=== PATIENT | male | born 1940 | race Caucasian/White ===

== ENCOUNTER → 2017-05-22 | Outpatient (CLI) | payer OTHER ==
[~2017-05-22] MED LIST: ADAL40PE IJ; FOLI0.8C PO; LORA10TA37 PO; METH2.5T PO
== END | disposition home or self-care (01) ==
LOC: CFH 07:07
PROVIDERS: ATTEND Family Medicine
DX: R22.2 Localized swelling, mass and lump, trunk (principal)
CPT/HCPCS: 71020; 71120

== ENCOUNTER 2017-12-02 02:51 | Emergency (ER) | payer OTHER ==
[~2017-12-02] VITALS: Ht 172.7 cm; Wt 79.3 kg
[2017-12-02 02:52] VITALS: BP 159/81
== END 2017-12-02 04:31 | disposition home or self-care (01) ==
LOC: ED 03:23
DX: T63.301A Toxic effect of unspecified spider venom, accidental (unintentional), initial encounter (principal); R51 Headache; Y92.89 Other specified places as the place of occurrence of the external cause
CPT/HCPCS: 99284

== ENCOUNTER → 2017-12-30 | Outpatient (CLI) | payer OTHER | LOC: CFH 08:39 | PROVIDERS: ATTEND Specialist | DX: M06.09 Rheumatoid arthritis without rheumatoid factor, multiple sites (principal); Z92.25 Personal history of immunosuppression therapy | CPT/HCPCS: 36415; 86480 ==

== ENCOUNTER → 2019-01-08 | Outpatient (CLI) | payer OTHER | END | disposition home or self-care (01) | LOC: LAB 14:01 | PROVIDERS: ATTEND Family Medicine | DX: Z79.899 Other long term (current) drug therapy (principal) | CPT/HCPCS: 36415; 86480; 86803; 87340 ==

== ENCOUNTER → 2019-01-25 | Outpatient (CLI) | payer OTHER ==
[2019-01-25 13:23] LABS: CHLORIDE 109 mmol/L (98-107)
[2019-01-25 13:31] LABS: ALANINE AMINOTRANSFERASE 27 U/L (12-78); ALBUMIN 4.1 g/dL (3.4-5.0); ALKALINE PHOSPHATASE 61 U/L (45-117); ANION GAP 4 mmol/L (5-15); BILIRUBIN,TOTAL 0.8 mg/dL (0.2-1.0); CHOL/HDL RATIO 1.7; CHOLESTEROL, TOTAL 123 mg/dL (140-239); CREATININE 1.02 mg/dL (0.7-1.3); HDL CHOL % 58 % (26-37); HDL CHOLESTEROL (DIRECT) 71 mg/dL (40-60); LDL CHOLESTEROL,CALCULATED 37 mg/dL (54-169); LDL/HDL RATIO 0.5 (0.5-3.0); TRIGLYCERIDES 75 mg/dL (50-200); VLDL CHOLESTEROL 15 mg/dL (0-25)
== END | disposition home or self-care (01) ==
LOC: CFH 07:09
PROVIDERS: ATTEND Internal Medicine Cardiovascular Disease
DX: I25.10 Atherosclerotic heart disease of native coronary artery without angina pectoris (principal); E78.2 Mixed hyperlipidemia; R07.9 Chest pain, unspecified
CPT/HCPCS: 36415; 80053; 80061

== ENCOUNTER → 2019-02-01 | Outpatient (CLI) | payer OTHER | END | disposition home or self-care (01) | LOC: CVU 09:49 | PROVIDERS: ATTEND Internal Medicine Cardiovascular Disease | DX: I65.23 Occlusion and stenosis of bilateral carotid arteries (principal); E78.5 Hyperlipidemia, unspecified; I25.10 Atherosclerotic heart disease of native coronary artery without angina pectoris | CPT/HCPCS: 93306; 93880 ==

== ENCOUNTER 2021-04-02 06:00 | Day surgery (SDC) | payer OTHER ==
[~2021-04-02] VITALS: Ht 172.7 cm; Wt 69.9 kg
[2021-04-02] MEDS ORDERED: CALC-455 PO (07:22)
[2021-04-02] MEDS ORDERED: OMEP-110 PO (07:22)
[2021-04-02] MEDS ORDERED: LACTATED RINGERS 1,000 ML IV SCH (07:30)
[2021-04-02] MEDS ORDERED: CHLORHEXIDINE 15 ML UDC PO ONE (07:30)
[2021-04-02 07:47] VITALS: BP 147/78
[2021-04-02] MEDS ORDERED: ALBUTEROL SULFATE 2.5 MG/3 ML NPPB PRN (08:00)
[2021-04-02] MEDS ORDERED: OXYcodone 5 MG/5 ML ORAL.SOL UDC PO PRN (08:00)
[2021-04-02] MEDS ORDERED: FENTANYL PF 100 MCG/2ML IV PRN (08:00)
[2021-04-02] MEDS ORDERED: PROMETHAZINE 25 MG/ML, 1ML IVPush PRN (08:00)
[2021-04-02] MEDS ORDERED: ACETAMINOPHEN 325 MG TABLET PO PRN (08:00)
[2021-04-02] MEDS ORDERED: MEPERIDINE/PF 25MG/0.5ML IVPush PRN (08:00)
[2021-04-02] MEDS ORDERED: HYDROmorphone 1 MG/ML, 1ML INJ IVPush PRN (08:00)
[2021-04-02] MEDS ORDERED: MIDAZOLAM 1 MG/ML, 2ML IV PRN (08:00)
[2021-04-02] MEDS ORDERED: LABETALOL 5MG/ML, 20ML IV PRN (08:00)
[2021-04-02] MEDS ORDERED: FENTANYL PF 250 MCG/5ML ONE (08:06)
[2021-04-02] MEDS ORDERED: BUPIVACAINE/PF 0.5% ONE (08:10)
[2021-04-02] MEDS ORDERED: EPINEPHRINE 1 MG/ML, 1ML ONE (08:10)
[2021-04-02] MEDS ORDERED: PHENYLEPHRINE 10 MG/ML ONE (08:27)
[2021-04-02] MEDS ORDERED: DEXAMETHASONE 4 MG/ML, 1ML ONE (08:27)
[2021-04-02] MEDS ORDERED: LIDOCAINE-MPF 2% ,5ML ONE (08:59)
[2021-04-02] MEDS ORDERED: PROPOFOL 10 MG/ML, 20ML ONE (09:05)
[2021-04-02] MEDS ORDERED: ROCURONIUM 10MG/ML,5ML ONE (09:05)
[2021-04-02] MEDS ORDERED: CEFAZOLIN 1,000 MG ONE (09:05)
[2021-04-02] MEDS ORDERED: ONDANSETRON 2MG/ML, 2ML ONE (09:05)
[2021-04-02] MEDS ORDERED: NEOSTIGMINE 1 MG/ML, 10ML ONE (09:05)
[2021-04-02] MEDS ORDERED: GLYCOPYRROLATE 0.2MG/1ML, 5ML ONE (09:05)
[2021-04-02] MEDS ORDERED: ACETAMINOPHEN 650 MG/20.3 ML UDC ONE (10:57)
[2021-04-02] MEDS ORDERED: OXYcodone 5 MG/5 ML ORAL.SOL UDC ONE (10:58)
== END 2021-04-02 12:50 | disposition home or self-care (01) ==
LOC: OUT 06:00
PROVIDERS: ATTEND Orthopaedic Surgery
DX: S42.022A Displaced fracture of shaft of left clavicle, initial encounter for closed fracture (principal); I25.10 Atherosclerotic heart disease of native coronary artery without angina pectoris; Z20.822 Contact with and (suspected) exposure to COVID-19; Z79.899 Other long term (current) drug therapy; Z87.891 Personal history of nicotine dependence; X58.XXXA Exposure to other specified factors, initial encounter; Y93.89 Activity, other specified; Y92.89 Other specified places as the place of occurrence of the external cause; Y99.8 Other external cause status
CPT/HCPCS: 23515; 73000; 87635; 93005; C1713; J0171; J0690; J1100; J2370; J2405; J2704; J2710; J3010; J7120; 76000

== ENCOUNTER 2021-04-17 16:36 | Inpatient (IN) | payer OTHER ==
[~2021-04-17] VITALS: Ht 170.2 cm; Wt 69.7 kg
[~2021-04-17 16:36] MED LIST changes: +CALC-455 PO; +OMEP-110 PO
--- NOTE | 2021-04-17 17:08 | NUR ---
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
--- NOTE | 2021-04-17 17:30 | NUR ---
pt presents to ed with c/o right sided weakness and dysarthria x48 hours. per pt and pt family, pt had a fall 4 weeks ago where he broke his clavicle, some ribs, and hit head. pt strength equal throuhgout bilaterally, dysarthria noted. pt a&o x4, resps even and unlabored, vss, nadn. warm blanket provided, call light in reach.
--- NOTE | 2021-04-17 17:30 | NUR ---
pt back from ct
[2021-04-17 17:43] LABS: BASOPHILS % (AUTO) 1 % (0-1); EOSINOPHILS % (AUTO) 0 % (1-7); LYMPHOCYTES % (AUTO) 22 % (22-44); MEAN CORPUSCULAR HEMOGLOBIN 34.6 pg (27.5-34.5); MEAN CORPUSCULAR HGB CONC 35.4 g/dL (33.2-36.2); MEAN PLATELET VOLUME 9.7 fL (7.4-10.4); MONOCYTES % (AUTO) 15 % (2-9); NEUTROPHILS % (AUTO) 62 % (42-75); PLATELET COUNT 192 x10^3/uL (130-400); RED BLOOD COUNT 3.54 x10^6/uL (4.38-5.82); RED CELL DISTRIBUTION WIDTH 12.1 % (9.4-14.8)
[2021-04-17 17:52] LABS: ALANINE AMINOTRANSFERASE 48 U/L (12-78); ALBUMIN 3.2 g/dL (3.4-5.0); ANION GAP 7 mmol/L (5-15); CALCIUM 8.5 mg/dL (8.5-10.1); CHLORIDE 99 mmol/L (98-107); CREATININE 0.96 mg/dL (0.7-1.3)
[2021-04-17 17:55] LABS: ALKALINE PHOSPHATASE 114 U/L (45-117); TOTAL PROTEIN 7.4 g/dL (6.4-8.2)
--- NOTE | 2021-04-17 17:58 | NUR ---
richelle Santiago at bedside for initial assessment
--- NOTE | 2021-04-17 18:38 | NUR ---
Jabier galaviz in [facility] - 04/17/21 at 1847 by SINGH pt taken to ct
--- NOTE | 2021-04-17 18:43 | NUR ---
PT TO MRI
--- NOTE | 2021-04-17 18:47 | NUR ---
REPORT GIVEN TO RASHAD JOYA
[2021-04-17] MEDS ORDERED: SODIUM CHLORIDE 0.9% 1,000 ML IV ONE (19:00)
[2021-04-17] MEDS ORDERED: LEVETIRACETAM 500 MG in SODIUM CHLORIDE 0.9% 100 ML IV SCH (19:00)
[2021-04-17 19:19] LABS: INTERNATIONAL NORMALIZED RATIO 1.07 (0.93-1.1); PROTHROMBIN TIME 11.4 Seconds (9.6-11.5)
--- NOTE | 2021-04-17 19:21 | NUR ---
First contact, pt at 60* per order, NSR no ectopy, VSS. IV started to right ac, meds started per order. Seizure pads applied, bed low.
--- NOTE | 2021-04-17 19:43 | NUR ---
Report to TOAN Barnes tx to tele on monitor with belongings.
[2021-04-17 20:05] VITALS: BP 145/74
[2021-04-17 22:42] VITALS: BP 137/70
[2021-04-17] MEDS ORDERED: MELATONIN 5 MG TABLET PO PRN (23:00)
[2021-04-17] MEDS ORDERED: DOCUSATE 100 MG CAPSULE PO PRN (23:00)
[2021-04-18] VITALS (8 sets, daily range): BP systolic 136–163; BP diastolic 63–90
[2021-04-18 05:55] LABS: BASOPHILS % (AUTO) 0 % (0-1); EOSINOPHILS % (AUTO) 1 % (1-7); LYMPHOCYTES % (AUTO) 20 % (22-44); MEAN CORPUSCULAR HEMOGLOBIN 36.2 pg (27.5-34.5); MEAN CORPUSCULAR HGB CONC 36.1 g/dL (33.2-36.2); MEAN PLATELET VOLUME 9.7 fL (7.4-10.4); MONOCYTES % (AUTO) 15 % (2-9); NEUTROPHILS % (AUTO) 64 % (42-75); PLATELET COUNT 171 x10^3/uL (130-400); RED BLOOD COUNT 3.23 x10^6/uL (4.38-5.82)
[2021-04-18 06:03] LABS: ANION GAP 6 mmol/L (5-15); CALCIUM 8.3 mg/dL (8.5-10.1); CHLORIDE 103 mmol/L (98-107); CREATININE 0.73 mg/dL (0.7-1.3)
[2021-04-18] MEDS ORDERED: LEVETIRACETAM 500 MG in SODIUM CHLORIDE 0.9% 100 ML IV SCH (07:00)
[2021-04-18] MEDS ORDERED: LACTATED RINGERS 1,000 ML IV ONE (11:00)
[2021-04-18] MEDS ORDERED: BUPIVACAINE/PF 0.5% ONE (13:11)
[2021-04-18] MEDS ORDERED: THROMBIN 20,000 UNIT VIAL TP ONE (13:11)
[2021-04-18] MEDS ORDERED: EPINEPHRINE 1 MG/ML, 1ML ONE (13:11)
[2021-04-18] MEDS ORDERED: CHLORHEXIDINE 15 ML UDC ONE (13:44)
[2021-04-18] MEDS ORDERED: CHLORHEXIDINE 15 ML UDC PO ONE (14:00)
[2021-04-18] MEDS ORDERED: FENTANYL PF 100 MCG/2ML ONE (14:15)
[2021-04-18] MEDS ORDERED: FENTANYL PF 250 MCG/5ML ONE (14:41)
[2021-04-18] MEDS ORDERED: DEXAMETHASONE 4 MG/ML, 1ML ONE (14:42)
[2021-04-18] MEDS ORDERED: LABETALOL 5MG/ML, 20ML ONE (14:42)
[2021-04-18] MEDS ORDERED: CEFAZOLIN 1,000 MG ONE (15:28)
[2021-04-18] MEDS ORDERED: NEOSTIGMINE 1 MG/ML, 10ML ONE (15:28)
[2021-04-18] MEDS ORDERED: SUCCINYLCHOLINE 20 MG/ML, 10ML ONE (15:28)
[2021-04-18] MEDS ORDERED: ONDANSETRON 2MG/ML, 2ML ONE (15:28)
[2021-04-18] MEDS ORDERED: GLYCOPYRROLATE 0.2MG/1ML, 5ML ONE (15:28)
[2021-04-18] MEDS ORDERED: PROPOFOL 10 MG/ML, 20ML ONE (15:28)
[2021-04-18] MEDS ORDERED: ROCURONIUM 10MG/ML,5ML ONE (15:28)
[2021-04-18] MEDS ORDERED: LEVETIRACETAM 1,000 MG in SODIUM CHLORIDE 0.9% 100 ML IV ONE (16:30)
[2021-04-18] MEDS ORDERED: BACITRACIN OINT 500U/GM, 15 GM ONE (16:31)
[2021-04-18] MEDS ORDERED: OXYcodone 5 MG/5 ML ORAL.SOL UDC PO PRN (17:00)
[2021-04-18] MEDS ORDERED: hydrALAzine 20 MG/ML, 1ML IV PRN (17:00)
[2021-04-18] MEDS ORDERED: MEPERIDINE/PF 25MG/0.5ML IVPush PRN (17:00)
[2021-04-18] MEDS ORDERED: LABETALOL 5MG/ML, 20ML IV PRN (17:00)
[2021-04-18] MEDS ORDERED: ONDANSETRON 2MG/ML, 2ML IVPush PRN (17:00)
[2021-04-18] MEDS ORDERED: HYDROcodone/APAP 7.5-325MG/15ML UDC PO PRN (17:00)
[2021-04-18] MEDS ORDERED: FENTANYL PF 100 MCG/2ML IV PRN (17:00)
[2021-04-18] MEDS ORDERED: HYDROmorphone 1 MG/ML, 1ML INJ IVPush PRN (17:00)
[2021-04-18] MEDS ORDERED: hydrALAzine 20 MG/ML, 1ML ONE (17:01)
[2021-04-18] MEDS: [UNRECOGNIZED DRUG - REMARK] MC SCH (19:00)
[2021-04-18] MEDS ORDERED: MAGNESIUM HYDROXIDE 8%, 30ML UDC PO PRN (19:00)
[2021-04-18] MEDS ORDERED: NITROPRUSSIDE 50 MG in DEXTROSE 5% 248 ML IV PRN (19:00)
[2021-04-18] MEDS ORDERED: BISACODYL 10 MG SUPP PR PRN (19:00)
[2021-04-18] MEDS ORDERED: HYDROcodone/APAP 5/325 TABLET PO PRN (19:00)
[2021-04-18] MEDS: NS + 20MEQ KCL 1,000 ML IV SCH (20:02)
[2021-04-18 20:03] LABS: BASOPHILS % (AUTO) 0 % (0-1); EOSINOPHILS % (AUTO) 0 % (1-7); LYMPHOCYTES % (AUTO) 3 % (22-44); MEAN CORPUSCULAR HEMOGLOBIN 34.9 pg (27.5-34.5); MEAN CORPUSCULAR HGB CONC 35.9 g/dL (33.2-36.2); MEAN PLATELET VOLUME 9.6 fL (7.4-10.4); MONOCYTES % (AUTO) 4 % (2-9); NEUTROPHILS % (AUTO) 93 % (42-75); PLATELET COUNT 174 x10^3/uL (130-400); RED BLOOD COUNT 3.38 x10^6/uL (4.38-5.82); RED CELL DISTRIBUTION WIDTH 12.1 % (9.4-14.8)
[2021-04-18 20:14] LABS: ANION GAP 9 mmol/L (5-15); CALCIUM 7.9 mg/dL (8.5-10.1); CHLORIDE 103 mmol/L (98-107); CREATININE 0.62 mg/dL (0.7-1.3)
[2021-04-18] MEDS: LABETALOL 5MG/ML, 20ML IV SCH (21:05)
[2021-04-19] MEDS: CEFAZOLIN PMX 1GM/50ML 50 ML IVPB SCH ×3 (01:44→18:08)
[2021-04-19] MEDS: [UNRECOGNIZED DRUG - REMARK] MC SCH (03:00)
[2021-04-19] MEDS: LABETALOL 5MG/ML, 20ML IV SCH ×3 (03:00→19:35)
[2021-04-19 03:22] LABS: BASOPHILS % (AUTO) 0 % (0-1); EOSINOPHILS % (AUTO) 0 % (1-7); LYMPHOCYTES % (AUTO) 6 % (22-44); MEAN CORPUSCULAR HEMOGLOBIN 35.1 pg (27.5-34.5); MEAN CORPUSCULAR HGB CONC 36.2 g/dL (33.2-36.2); MEAN PLATELET VOLUME 9.4 fL (7.4-10.4); MONOCYTES % (AUTO) 9 % (2-9); NEUTROPHILS % (AUTO) 85 % (42-75); PLATELET COUNT 192 x10^3/uL (130-400); RED BLOOD COUNT 3.19 x10^6/uL (4.38-5.82); RED CELL DISTRIBUTION WIDTH 12.2 % (9.4-14.8)
[2021-04-19 03:32] LABS: ANION GAP 8 mmol/L (5-15); CALCIUM 7.9 mg/dL (8.5-10.1); CHLORIDE 103 mmol/L (98-107); CREATININE 0.68 mg/dL (0.7-1.3)
[2021-04-19] MEDS: LEVETIRACETAM 500 MG in SODIUM CHLORIDE 0.9% 100 ML IV SCH ×2 (05:31→18:08)
[2021-04-19] MEDS: NS + 20MEQ KCL 1,000 ML IV SCH ×2 (07:14→08:30)
[2021-04-19] MEDS: OMEPRAZOLE 20 MG CAPSULE.DR PO SCH (08:00)
[2021-04-19] MEDS: CALCIUM/VITAMIN D3 250-125 TABLET PO SCH (09:00)
[2021-04-19] MEDS: SENNA/DOCUSATE TABLET PO SCH (09:00)
[2021-04-19] MEDS: LORATADINE 10 MG TABLET PO SCH (09:00)
[2021-04-19] MEDS: FOLIC ACID 1 MG TABLET PO SCH (09:00)
[2021-04-19] MEDS: morphine SULFATE 10 MG/ML, 1ML IV PRN ×2 (11:24→21:26)
[2021-04-20] MEDS: CEFAZOLIN PMX 1GM/50ML 50 ML IVPB SCH ×2 (00:13→07:27)
[2021-04-20] MEDS: morphine SULFATE 10 MG/ML, 1ML IV PRN (01:17)
[2021-04-20] MEDS: NS + 20MEQ KCL 1,000 ML IV SCH (01:56)
[2021-04-20] MEDS: ACETAMINOPHEN 650 MG SUPP PR PRN ×2 (02:28→15:56)
[2021-04-20] MEDS: LABETALOL 5MG/ML, 20ML IV SCH ×3 (04:00→20:26)
[2021-04-20] MEDS: LEVETIRACETAM 500 MG in SODIUM CHLORIDE 0.9% 100 ML IV SCH ×2 (05:13→17:13)
[2021-04-20] MEDS: OMEPRAZOLE 20 MG CAPSULE.DR PO SCH (05:13)
[2021-04-20] MEDS ORDERED: MORPHINE SULFATE 4 MG/ML, 1ML IV PRN (08:30)
[2021-04-20] MEDS: CALCIUM/VITAMIN D3 250-125 TABLET PO SCH (09:00)
[2021-04-20] MEDS: FOLIC ACID 1 MG TABLET PO SCH (09:00)
[2021-04-20] MEDS: SENNA/DOCUSATE TABLET PO SCH (09:00)
[2021-04-20] MEDS: LORATADINE 10 MG TABLET PO SCH (09:00)
[2021-04-20 09:04] LABS: BASOPHILS % (AUTO) 0 % (0-1); EOSINOPHILS % (AUTO) 0 % (1-7); LYMPHOCYTES % (AUTO) 10 % (22-44); MEAN CORPUSCULAR HEMOGLOBIN 34.1 pg (27.5-34.5); MEAN CORPUSCULAR HGB CONC 35.1 g/dL (33.2-36.2); MEAN PLATELET VOLUME 9.3 fL (7.4-10.4); MONOCYTES % (AUTO) 12 % (2-9); NEUTROPHILS % (AUTO) 77 % (42-75); PLATELET COUNT 217 x10^3/uL (130-400); RED BLOOD COUNT 3.41 x10^6/uL (4.38-5.82)
[2021-04-20] MEDS: MORPHINE SULFATE 4 MG/ML, 1ML IV PRN ×2 (12:48→23:48)
[2021-04-20] MEDS: ACETAMINOPHEN 325 MG TABLET PO PRN (12:48)
[2021-04-20] MEDS ORDERED: PHARMACOKINETIC CONSULTATION MC ONE (14:00)
[2021-04-20] MEDS ORDERED: PHARMACOKINETIC MONITORING MC PRN (14:00)
[2021-04-20] MEDS ORDERED: VANCOMYCIN 1,700 MG in SODIUM CHLORIDE 0.9% 250 ML IV ONE (14:00)
[2021-04-20] MEDS ORDERED: VANCOMYCIN PER PHARMACY MC PRN (14:00)
[2021-04-20 14:21] LABS: MICROSCOPIC AUTO
[2021-04-20] MEDS: CEFTRIAXONE 2 GM in DEXTROSE 5% 50 ML IVPB SCH (14:30)
[2021-04-20] MEDS ORDERED: DOPAMINE/D5W PMX 250 ML ONE (18:33)
[2021-04-21] MEDS: CEFTRIAXONE 2 GM in DEXTROSE 5% 50 ML IVPB SCH ×2 (01:40→14:20)
[2021-04-21] MEDS: NS + 20MEQ KCL 1,000 ML IV SCH (01:40)
[2021-04-21] MEDS: MORPHINE SULFATE 4 MG/ML, 1ML IV PRN ×3 (04:12→11:08)
[2021-04-21] MEDS: LEVETIRACETAM 500 MG in SODIUM CHLORIDE 0.9% 100 ML IV SCH ×2 (04:13→17:56)
[2021-04-21 04:25] LABS: BASOPHILS % (AUTO) 0 % (0-1); EOSINOPHILS % (AUTO) 0 % (1-7); LYMPHOCYTES % (AUTO) 13 % (22-44); MEAN CORPUSCULAR HEMOGLOBIN 34.9 pg (27.5-34.5); MEAN PLATELET VOLUME 9.5 fL (7.4-10.4); MONOCYTES % (AUTO) 13 % (2-9); NEUTROPHILS % (AUTO) 74 % (42-75); PLATELET COUNT 199 x10^3/uL (130-400); RED BLOOD COUNT 3.14 x10^6/uL (4.38-5.82); RED CELL DISTRIBUTION WIDTH 11.8 % (9.4-14.8)
[2021-04-21 04:32] LABS: ALBUMIN 2.4 g/dL (3.4-5.0); ANION GAP 7 mmol/L (5-15); CALCIUM 8.1 mg/dL (8.5-10.1); CHLORIDE 99 mmol/L (98-107)
[2021-04-21 04:35] LABS: ALANINE AMINOTRANSFERASE 26 U/L (12-78); ALKALINE PHOSPHATASE 80 U/L (45-117); BILIRUBIN,TOTAL 0.6 mg/dL (0.2-1.0); CREATININE 0.65 mg/dL (0.7-1.3); TOTAL PROTEIN 6.3 g/dL (6.4-8.2)
[2021-04-21] MEDS: LABETALOL 5MG/ML, 20ML IV SCH (04:47)
[2021-04-21] MEDS: OMEPRAZOLE 20 MG CAPSULE.DR PO SCH (05:08)
[2021-04-21] MEDS ORDERED: SODIUM CHLORIDE 0.9%, 500ML IVBOLUS ONE (07:00)
[2021-04-21] MEDS: SODIUM CHLORIDE 0.9% 1,000 ML IV SCH ×2 (07:00→20:03)
[2021-04-21] MEDS ORDERED: SODIUM CHLORIDE 0.9% 1,000 ML IV SCH (07:00)
[2021-04-21] MEDS: ACETAMINOPHEN 650 MG SUPP PR PRN (07:49)
[2021-04-21] MEDS: CALCIUM/VITAMIN D3 250-125 TABLET PO SCH (09:00)
[2021-04-21] MEDS: FOLIC ACID 1 MG TABLET PO SCH (09:00)
--- NOTE | 2021-04-21 10:54 | NUR ---
TF recs: Promote at goal 65 ml/hr (ON propofol) 75 ml/hr (OFF propofol) Addendum: 04/21/21 at [address] Amended: Links added.
[2021-04-21] MEDS: SODIUM CHLORIDE 1 GM TABLET PO SCH ×3 (14:21→20:03)
[2021-04-21] MEDS: OXYcodone/APAP 5/325MG TABLET PO PRN ×2 (14:22→22:22)
[2021-04-21] MEDS: SENNA/DOCUSATE TABLET PO SCH (14:22)
[2021-04-21] MEDS ORDERED: VANCOMYCIN 1,400 MG in SODIUM CHLORIDE 0.9% 250 ML IV SCH (15:00)
[2021-04-22] MEDS: CEFTRIAXONE 2 GM in DEXTROSE 5% 50 ML IVPB SCH ×2 (01:25→17:46)
[2021-04-22] MEDS: OXYcodone/APAP 5/325MG TABLET PO PRN (02:43)
[2021-04-22] MEDS: OMEPRAZOLE 20 MG CAPSULE.DR PO SCH (04:11)
[2021-04-22] MEDS: LEVETIRACETAM 500 MG in SODIUM CHLORIDE 0.9% 100 ML IV SCH (05:17)
[2021-04-22] MEDS: SODIUM CHLORIDE 0.9% 1,000 ML IV SCH (05:27)
[2021-04-22 07:54] LABS: BASOPHILS % (AUTO) 0 % (0-1); EOSINOPHILS % (AUTO) 1 % (1-7); LYMPHOCYTES % (AUTO) 17 % (22-44); MEAN CORPUSCULAR HEMOGLOBIN 35.1 pg (27.5-34.5); MEAN CORPUSCULAR HGB CONC 35.7 g/dL (33.2-36.2); MEAN PLATELET VOLUME 8.9 fL (7.4-10.4); MONOCYTES % (AUTO) 12 % (2-9); NEUTROPHILS % (AUTO) 69 % (42-75); PLATELET COUNT 209 x10^3/uL (130-400); RED BLOOD COUNT 2.98 x10^6/uL (4.38-5.82); RED CELL DISTRIBUTION WIDTH 12.2 % (9.4-14.8)
[2021-04-22 08:02] LABS: ANION GAP 10 mmol/L (5-15); CALCIUM 7.9 mg/dL (8.5-10.1); CHLORIDE 101 mmol/L (98-107); CREATININE 0.54 mg/dL (0.7-1.3)
[2021-04-22] MEDS: LEVETIRACETAM 500 MG TABLET PO SCH ×2 (09:14→22:02)
[2021-04-22] MEDS: CALCIUM/VITAMIN D3 250-125 TABLET PO SCH (09:15)
[2021-04-22] MEDS: SENNA/DOCUSATE TABLET PO SCH (09:16)
[2021-04-22] MEDS: FOLIC ACID 1 MG TABLET PO SCH (09:16)
[2021-04-22] MEDS: SODIUM CHLORIDE 1 GM TABLET PO SCH ×3 (09:16→22:02)
[2021-04-22 14:40] VITALS: BP 171/74
[2021-04-22] MEDS: D5%-0.9% NACL 1,000 ML IV SCH (17:45)
[2021-04-22 20:43] VITALS: BP 175/77
[2021-04-23 01:01] VITALS: BP 142/79
[2021-04-23] MEDS: D5%-0.9% NACL 1,000 ML IV SCH (05:13)
[2021-04-23] MEDS: CEFTRIAXONE 2 GM in DEXTROSE 5% 50 ML IVPB SCH ×2 (05:13→17:57)
[2021-04-23] MEDS: OMEPRAZOLE 20 MG CAPSULE.DR PO SCH (05:20)
[2021-04-23 05:35] LABS: BASOPHILS % (AUTO) 0 % (0-1); EOSINOPHILS % (AUTO) 1 % (1-7); LYMPHOCYTES % (AUTO) 14 % (22-44); MEAN CORPUSCULAR HEMOGLOBIN 36.4 pg (27.5-34.5); MEAN CORPUSCULAR HGB CONC 36.6 g/dL (33.2-36.2); MONOCYTES % (AUTO) 13 % (2-9); NEUTROPHILS % (AUTO) 72 % (42-75); PLATELET COUNT 229 x10^3/uL (130-400); RED BLOOD COUNT 2.99 x10^6/uL (4.38-5.82); RED CELL DISTRIBUTION WIDTH 12.2 % (9.4-14.8)
[2021-04-23 05:36] LABS: ANION GAP 8 mmol/L (5-15); CHLORIDE 99 mmol/L (98-107); CREATININE 0.53 mg/dL (0.7-1.3)
[2021-04-23] MEDS ORDERED: POTASSIUM CHLORIDE 40 MEQ in SODIUM CHLORIDE 0.9% 500 ML IV ONE (06:30)
[2021-04-23 07:31] VITALS: BP 150/71
[2021-04-23] MEDS: CALCIUM/VITAMIN D3 250-125 TABLET PO SCH (09:00)
[2021-04-23] MEDS: LEVETIRACETAM 500 MG TABLET PO SCH ×3 (10:04→22:19)
[2021-04-23] MEDS: FOLIC ACID 1 MG TABLET PO SCH (10:05)
[2021-04-23] MEDS: SENNA/DOCUSATE TABLET PO SCH (10:05)
[2021-04-23] MEDS: SODIUM CHLORIDE 1 GM TABLET PO SCH ×4 (10:06→22:19)
[2021-04-23] MEDS ORDERED: POTASSIUM CHLORIDE 40 MEQ in D5%-0.9% NACL 1,000 ML IV SCH (16:00)
[2021-04-23] MEDS: POTASSIUM CHLORIDE 40 MEQ in D5%-0.9% NACL 1,000 ML IV SCH (16:34)
[2021-04-23 19:21] VITALS: BP 168/82
[2021-04-23] MEDS ORDERED: LEVETIRACETAM 500 MG in SODIUM CHLORIDE 0.9% 100 ML IV ONE (22:30)
[2021-04-23 23:37] LABS: ANION GAP 8 mmol/L (5-15); CHLORIDE 99 mmol/L (98-107); CREATININE 0.54 mg/dL (0.7-1.3)
[2021-04-24 01:01] VITALS: BP 169/83
[2021-04-24] MEDS: CEFTRIAXONE 2 GM in DEXTROSE 5% 50 ML IVPB SCH ×2 (05:50→17:33)
[2021-04-24 07:11] VITALS: BP 167/79
[2021-04-24 08:15] LABS: ANION GAP 7 mmol/L (5-15); CALCIUM 8.4 mg/dL (8.5-10.1); CHLORIDE 99 mmol/L (98-107)
[2021-04-24 08:16] LABS: CREATININE 0.53 mg/dL (0.7-1.3)
[2021-04-24] MEDS: CALCIUM/VITAMIN D3 250-125 TABLET PO SCH (09:06)
[2021-04-24] MEDS: SENNA/DOCUSATE TABLET PO SCH (09:06)
[2021-04-24] MEDS: LEVETIRACETAM 500 MG TABLET PO SCH ×2 (09:06→21:44)
[2021-04-24] MEDS: FOLIC ACID 1 MG TABLET PO SCH (09:06)
[2021-04-24] MEDS: OMEPRAZOLE 20 MG CAPSULE.DR PO SCH (09:06)
[2021-04-24] MEDS: SODIUM CHLORIDE 1 GM TABLET PO SCH ×3 (09:06→21:44)
[2021-04-24] MEDS: POTASSIUM CHLORIDE 40 MEQ in D5%-0.9% NACL 1,000 ML IV SCH (09:54)
[2021-04-24 12:04] VITALS: BP 157/80
[2021-04-24] MEDS: ACETAMINOPHEN 325 MG TABLET PO PRN (15:26)
[2021-04-24 18:53] VITALS: BP 113/68
[2021-04-25 00:33] VITALS: BP 142/87
[2021-04-25] MEDS: POTASSIUM CHLORIDE 40 MEQ in D5%-0.9% NACL 1,000 ML IV SCH (03:15)
[2021-04-25] MEDS: OMEPRAZOLE 20 MG CAPSULE.DR PO SCH (05:09)
[2021-04-25] MEDS: CEFTRIAXONE 2 GM in DEXTROSE 5% 50 ML IVPB SCH (05:09)
[2021-04-25 07:26] VITALS: BP 156/75
[2021-04-25] MEDS: SENNA/DOCUSATE TABLET PO SCH (09:31)
[2021-04-25] MEDS: LEVETIRACETAM 500 MG TABLET PO SCH ×2 (09:31→20:22)
[2021-04-25] MEDS: FOLIC ACID 1 MG TABLET PO SCH (09:31)
[2021-04-25] MEDS: CALCIUM/VITAMIN D3 250-125 TABLET PO SCH (09:31)
[2021-04-25] MEDS: SODIUM CHLORIDE 1 GM TABLET PO SCH ×3 (09:32→20:22)
[2021-04-25 12:12] VITALS: BP 124/69
[2021-04-25] MEDS: ACETAMINOPHEN 325 MG TABLET PO PRN ×2 (13:26→20:21)
[2021-04-25 18:44] VITALS: BP 156/79
[2021-04-26 00:41] VITALS: BP 146/84
[2021-04-26] MEDS: OMEPRAZOLE 20 MG CAPSULE.DR PO SCH (05:34)
[2021-04-26 07:10] VITALS: BP 166/90
[2021-04-26] MEDS: CALCIUM/VITAMIN D3 250-125 TABLET PO SCH (08:50)
[2021-04-26] MEDS: FOLIC ACID 1 MG TABLET PO SCH (08:50)
[2021-04-26] MEDS: SENNA/DOCUSATE TABLET PO SCH (08:51)
[2021-04-26] MEDS: SODIUM CHLORIDE 1 GM TABLET PO SCH ×3 (08:51→21:18)
[2021-04-26] MEDS: ACETAMINOPHEN 325 MG TABLET PO PRN ×2 (13:20→21:18)
[2021-04-26 17:37] VITALS: BP 142/83
[2021-04-26] MEDS: METOPROLOL TARTRATE 25 MG TAB PO SCH (17:39)
[2021-04-26 18:38] VITALS: BP 136/75
[2021-04-26] MEDS: ATORVASTATIN 40 MG TABLET PO SCH (21:18)
[2021-04-27 00:37] VITALS: BP 143/60
[2021-04-27 06:04] VITALS: BP 135/61
[2021-04-27] MEDS: OMEPRAZOLE 20 MG CAPSULE.DR PO SCH (06:08)
[2021-04-27] MEDS: METOPROLOL TARTRATE 25 MG TAB PO SCH (06:08)
[2021-04-27 06:16] LABS: BASOPHILS % (AUTO) 0 % (0-1); EOSINOPHILS % (AUTO) 2 % (1-7); LYMPHOCYTES % (AUTO) 27 % (22-44); MEAN CORPUSCULAR HEMOGLOBIN 35.2 pg (27.5-34.5); MEAN CORPUSCULAR HGB CONC 36.2 g/dL (33.2-36.2); MEAN PLATELET VOLUME 8.8 fL (7.4-10.4); MONOCYTES % (AUTO) 14 % (2-9); NEUTROPHILS % (AUTO) 57 % (42-75); PLATELET COUNT 352 x10^3/uL (130-400); RED BLOOD COUNT 3.34 x10^6/uL (4.38-5.82); RED CELL DISTRIBUTION WIDTH 12.2 % (9.4-14.8)
[2021-04-27 06:25] LABS: ANION GAP 6 mmol/L (5-15); CALCIUM 8.4 mg/dL (8.5-10.1); CHLORIDE 105 mmol/L (98-107); CREATININE 0.63 mg/dL (0.7-1.3)
[2021-04-27 06:59] VITALS: BP 146/77
[2021-04-27] MEDS ORDERED: CODE BLUE RESPONSE XX ONE (08:45)
[2021-04-27] MEDS ORDERED: SODIUM BICARB 8.4%, 50ML SYRINGE ONE (08:45)
[2021-04-27] MEDS: CALCIUM/VITAMIN D3 250-125 TABLET PO SCH (09:00)
[2021-04-27] MEDS: FOLIC ACID 1 MG TABLET PO SCH (09:00)
[2021-04-27] MEDS: SENNA/DOCUSATE TABLET PO SCH (09:00)
[2021-04-27] MEDS: SODIUM CHLORIDE 1 GM TABLET PO SCH ×3 (09:00→21:30)
[2021-04-27] MEDS ORDERED: PROPOFOL 100 ML IV ONE (09:07)
[2021-04-27] MEDS ORDERED: LORazepam 2 MG/ML, 1ML ONE (09:27)
[2021-04-27] MEDS ORDERED: LORazepam 2 MG/ML, 1ML IVPush ONE (09:30)
[2021-04-27] MEDS ORDERED: NOREPINEPHRINE 1 MG/ML, 4ML ONE (09:44)
[2021-04-27] MEDS ORDERED: SODIUM CHLORIDE 0.9% 1,000ML IVBOLUS ONE (11:00)
[2021-04-27] MEDS ORDERED: LIDOCAINE-MPF 1%, 2ML ENDO PRN (11:00)
[2021-04-27] MEDS ORDERED: PHARMACY MAY ADJ FOR RENAL FX MC SCH (11:00)
[2021-04-27 11:05] LABS: MEAN CORPUSCULAR HEMOGLOBIN 33.5 pg (27.5-34.5); MEAN CORPUSCULAR HGB CONC 34.2 g/dL (33.2-36.2); MEAN PLATELET VOLUME 8.8 fL (7.4-10.4); PLATELET COUNT 458 x10^3/uL (130-400); RED BLOOD COUNT 3.61 x10^6/uL (4.38-5.82); RED CELL DISTRIBUTION WIDTH 12.2 % (9.4-14.8)
[2021-04-27 11:13] LABS: ALBUMIN 2.6 g/dL (3.4-5.0); ANION GAP 15 mmol/L (5-15); CALCIUM 8.2 mg/dL (8.5-10.1); CHLORIDE 104 mmol/L (98-107)
[2021-04-27 11:17] LABS: ALANINE AMINOTRANSFERASE 122 U/L (12-78); ALKALINE PHOSPHATASE 104 U/L (45-117); BILIRUBIN,TOTAL 0.6 mg/dL (0.2-1.0); CREATININE 1.18 mg/dL (0.7-1.3); TOTAL PROTEIN 6.4 g/dL (6.4-8.2); TRIGLYCERIDES 120 mg/dL (50-200)
[2021-04-27 11:27] LABS: <PLATELET ESTIMATE> INCREASED; <PLT MORPHOLOGY> NORMAL PLT MORPH; <RBC MORPHOLOGY> NORMAL; BAND#(MANUAL) 0.83 x10^3/uL; BANDS%(MANUAL) 3 % (0-7); LYMPH#(MANUAL) 2.48 x10^3/uL (1-3.4); LYMPHS% (MANUAL) 9 % (22-44); MONOS#(MANUAL) 0.28 x10^3/uL (0.3-2.7); MONOS% (MANUAL) 1 % (2-9); SEG#(MANUAL) 23.93 x10^3/uL (1.8-6.8); SEGS% (MANUAL) 87 % (42-75)
[2021-04-27] MEDS ORDERED: MAGNESIUM SULFATE 1 GM in SODIUM CHLORIDE 0.9% 50 ML IV PRN (11:30)
[2021-04-27] MEDS ORDERED: CALCIUM CHLORIDE 13.6 MEQ in DEXTROSE 5% 100 ML IV PRN (11:30)
[2021-04-27] MEDS ORDERED: SODIUM PHOSPHATE 20 MMOL in SODIUM CHLORIDE 0.9% 250 ML IV PRN (11:30)
[2021-04-27] MEDS ORDERED: DEXMEDETOMIDINE 200 MCG in SODIUM CHLORIDE 0.9% 48 ML IV PRN (11:30)
[2021-04-27] MEDS ORDERED: NOREPINEPHRINE 8 MG in SODIUM CHLORIDE 0.9% 242 ML IV PRN (11:30)
[2021-04-27] MEDS ORDERED: PROPOFOL 100 ML IV PRN (11:30)
[2021-04-27] MEDS: KSCALE TO 4.0 IV SCH ×3 (11:30→21:00)
[2021-04-27] MEDS: AMPICILLIN/SULBACTAM 3 GM in SODIUM CHLORIDE 0.9% 100 ML IV SCH ×3 (11:57→21:30)
[2021-04-27] MEDS ORDERED: HEPARIN 5,000 UNITS/ML, 1ML SQ SCH (12:00)
[2021-04-27] MEDS: BUSPIRONE 10 MG TABLET NG SCH ×2 (12:15→20:09)
[2021-04-27] MEDS: FAMOTIDINE 20 MG/2 ML IV SCH ×2 (12:15→22:26)
[2021-04-27] MEDS: MIDAZOLAM HCL 50 MG in SODIUM CHLORIDE 0.9% 40 ML IV PRN (12:15)
[2021-04-27] MEDS ORDERED: POTASSIUM CHLORIDE PMX 100 ML IV ONE ×2 (13:30→22:00)
[2021-04-27] MEDS: FENTANYL PF 2,500 MCG in SODIUM CHLORIDE 0.9% 200 ML IV PRN (13:55)
[2021-04-27] MEDS ORDERED: DEXTROSE 50%, 50ML SYRINGE IV PRN (14:00)
[2021-04-27] MEDS ORDERED: INSULIN INFUSION FOR ICU PROTOCOL XX PRN (14:00)
[2021-04-27] MEDS ORDERED: INSULIN REGULAR 100 UNITS/ML, 3ML VIAL IV ONE (14:00)
[2021-04-27] MEDS: REGULAR INSULIN 100 UNITS in SODIUM CHLORIDE 0.9% 99 ML IV PRN ×2 (14:06→17:33)
[2021-04-27] MEDS: VECURONIUM 10 MG IVPush PRN ×2 (16:13→22:09)
[2021-04-27] MEDS: ARTIFICIAL TEARS OINT 3.5 GM EACHEYE SCH ×2 (17:00→20:08)
[2021-04-27] MEDS ORDERED: EPINEPHRINE SYRINGE 0.1 MG/ML, 10ML ONE (17:15)
[2021-04-27] MEDS ORDERED: POTASSIUM CHLORIDE 20 MEQ in SODIUM CHLORIDE 0.9% 250 ML IV ONE (18:00)
[2021-04-27] MEDS: PROPOFOL 100 ML IV PRN (20:29)
[2021-04-27] MEDS: ATORVASTATIN 40 MG TABLET PO SCH (21:30)
[2021-04-28] MEDS: MIDAZOLAM HCL 50 MG in SODIUM CHLORIDE 0.9% 40 ML IV PRN ×2 (00:41→15:34)
[2021-04-28] MEDS: KSCALE TO 4.0 IV SCH ×6 (01:00→21:00)
[2021-04-28] MEDS: PROPOFOL 100 ML IV PRN ×4 (02:02→18:11)
[2021-04-28] MEDS ORDERED: POTASSIUM CHLORIDE PMX 100 ML IV ONE ×3 (02:30→12:30)
[2021-04-28] MEDS: BUSPIRONE 10 MG TABLET NG SCH ×3 (02:58→20:09)
[2021-04-28] MEDS: VECURONIUM 10 MG IVPush PRN ×3 (02:58→15:34)
[2021-04-28] MEDS: ARTIFICIAL TEARS OINT 3.5 GM EACHEYE SCH ×3 (02:58→20:09)
[2021-04-28] MEDS: AMPICILLIN/SULBACTAM 3 GM in SODIUM CHLORIDE 0.9% 100 ML IV SCH ×4 (04:26→21:58)
[2021-04-28 05:45] LABS: MEAN CORPUSCULAR HEMOGLOBIN 33.6 pg (27.5-34.5); MEAN CORPUSCULAR HGB CONC 34.9 g/dL (33.2-36.2); MEAN PLATELET VOLUME 8.8 fL (7.4-10.4); PLATELET COUNT 427 x10^3/uL (130-400); RED BLOOD COUNT 3.41 x10^6/uL (4.38-5.82); RED CELL DISTRIBUTION WIDTH 12.1 % (9.4-14.8)
[2021-04-28 05:50] LABS: CHLORIDE 110 mmol/L (98-107)
[2021-04-28 05:54] LABS: ANION GAP 8 mmol/L (5-15); CALCIUM 7.7 mg/dL (8.5-10.1); CREATININE 0.55 mg/dL (0.7-1.3)
[2021-04-28] MEDS ORDERED: MAGNESIUM SULFATE/D5W 0 ML ONE (06:06)
[2021-04-28 06:24] LABS: BAND#(MANUAL) 2.56 x10^3/uL; BANDS%(MANUAL) 8 % (0-7); LYMPH#(MANUAL) 2.56 x10^3/uL (1-3.4); LYMPHS% (MANUAL) 8 % (22-44); MONOS#(MANUAL) 0.96 x10^3/uL (0.3-2.7); MONOS% (MANUAL) 3 % (2-9); SEG#(MANUAL) 25.92 x10^3/uL (1.8-6.8); SEGS% (MANUAL) 81 % (42-75)
[2021-04-28 06:27] LABS: ANISOCYTOSIS 1+; ECHINOCYTES 1+
[2021-04-28 06:30] LABS: <PLATELET ESTIMATE> INCREASED; LARGE PLATELETS 1+
[2021-04-28] MEDS: CALCIUM/VITAMIN D3 250-125 TABLET PO SCH (07:12)
[2021-04-28] MEDS: FOLIC ACID 1 MG TABLET PO SCH (07:12)
[2021-04-28] MEDS: SENNA/DOCUSATE TABLET PO SCH (07:12)
[2021-04-28] MEDS: NOREPINEPHRINE 8 MG in SODIUM CHLORIDE 0.9% 242 ML IV PRN ×2 (07:24→13:46)
[2021-04-28] MEDS: SODIUM CHLORIDE 1 GM TABLET PO SCH ×3 (07:30→20:26)
[2021-04-28] MEDS: REGULAR INSULIN 100 UNITS in SODIUM CHLORIDE 0.9% 99 ML IV PRN ×4 (08:44→18:11)
[2021-04-28 09:06] LABS: FIO2 30 %
[2021-04-28] MEDS: FAMOTIDINE 20 MG/2 ML IV SCH ×2 (11:06→23:08)
[2021-04-28 15:08] LABS: FIO2 30 %
[2021-04-28] MEDS: ATORVASTATIN 40 MG TABLET PO SCH (20:26)
[2021-04-28] MEDS: FENTANYL PF 2,500 MCG in SODIUM CHLORIDE 0.9% 200 ML IV PRN (21:16)
[2021-04-28 22:26] LABS: TROPONIN I 0.352 ng/mL (0.000-0.045)
[2021-04-29] MEDS: KSCALE TO 4.0 IV SCH ×3 (00:30→09:00)
[2021-04-29] MEDS: NOREPINEPHRINE 8 MG in SODIUM CHLORIDE 0.9% 242 ML IV PRN (00:44)
[2021-04-29] MEDS: PROPOFOL 100 ML IV PRN ×2 (01:35→06:33)
[2021-04-29] MEDS ORDERED: NOREPINEPHRINE 32 MG in SODIUM CHLORIDE 0.9% 218 ML IV PRN (03:06)
[2021-04-29] MEDS: BUSPIRONE 10 MG TABLET NG SCH (03:47)
[2021-04-29] MEDS: AMPICILLIN/SULBACTAM 3 GM in SODIUM CHLORIDE 0.9% 100 ML IV SCH ×2 (03:47→09:18)
[2021-04-29] MEDS: ARTIFICIAL TEARS OINT 3.5 GM EACHEYE SCH (03:47)
[2021-04-29 03:54] LABS: MEAN CORPUSCULAR HEMOGLOBIN 33.1 pg (27.5-34.5); MEAN PLATELET VOLUME 8.9 fL (7.4-10.4); PLATELET COUNT 360 x10^3/uL (130-400); RED BLOOD COUNT 3.37 x10^6/uL (4.38-5.82); RED CELL DISTRIBUTION WIDTH 12.6 % (9.4-14.8)
[2021-04-29 04:02] LABS: ANION GAP 8 mmol/L (5-15); CALCIUM 8.5 mg/dL (8.5-10.1); CHLORIDE 111 mmol/L (98-107); CREATININE 1.03 mg/dL (0.7-1.3)
[2021-04-29 04:19] LABS: BANDS%(MANUAL) 3 % (0-7); LYMPH#(MANUAL) 1.67 x10^3/uL (1-3.4); LYMPHS% (MANUAL) 5 % (22-44); MONOS#(MANUAL) 0.67 x10^3/uL (0.3-2.7); MONOS% (MANUAL) 2 % (2-9); SEG#(MANUAL) 30.06 x10^3/uL (1.8-6.8); SEGS% (MANUAL) 90 % (42-75)
[2021-04-29 04:20] LABS: <PLATELET ESTIMATE> ADEQUATE; <PLT MORPHOLOGY> NORMAL PLT MORPH; <RBC MORPHOLOGY> NORMAL
[2021-04-29] MEDS: VECURONIUM 10 MG IVPush PRN (04:43)
[2021-04-29] MEDS: MIDAZOLAM HCL 50 MG in SODIUM CHLORIDE 0.9% 40 ML IV PRN (05:45)
[2021-04-29] MEDS ORDERED: LEVETIRACETAM 1,000 MG in SODIUM CHLORIDE 0.9% 100 ML IV SCH (09:00)
[2021-04-29] MEDS: SENNA/DOCUSATE TABLET PO SCH (09:18)
[2021-04-29] MEDS: CALCIUM/VITAMIN D3 250-125 TABLET PO SCH (09:18)
[2021-04-29] MEDS: FOLIC ACID 1 MG TABLET PO SCH (09:18)
[2021-04-29] MEDS: FAMOTIDINE 20 MG/2 ML IV SCH (10:58)
[2021-04-29] MEDS ORDERED: MORPHINE SULFATE 4 MG/ML, 1ML IV ONE (11:00)
[2021-04-29] MEDS ORDERED: LORazepam 2 MG/ML, 1ML IVPush PRN (11:00)
[2021-04-29] MEDS ORDERED: MORPHINE SULFATE 4 MG/ML, 1ML IVPush PRN (11:00)
[2021-04-29] MEDS ORDERED: LORazepam 2 MG/ML, 1ML IV ONE (11:00)
== END 2021-04-29 14:35 | disposition expired | DRG 25 ==
LOC: ED 19:31 → 4EST 20:02 → CCU 04-18 17:47 → 5SO 04-19 13:48 → CCU 04-19 13:56 → 4WST 04-22 14:27 → CCU 04-27 08:56
PROVIDERS: ADMIT Internal Medicine; ATTEND Hospitalist
PROC: 00C40ZZ Extirpation of Matter from Intracranial Subdural Space, Open Approach (ICD-10-PCS; principal; 2021-04-18 14:30)
PROC: 0T9B70Z Drainage of Bladder with Drainage Device, Via Natural or Artificial Opening (ICD-10-PCS; 2021-04-20)
PROC: 5A1945Z Respiratory Ventilation, 24-96 Consecutive Hours (ICD-10-PCS; 2021-04-27)
PROC: 0BH17EZ Insertion of Endotracheal Airway into Trachea, Via Natural or Artificial Opening (ICD-10-PCS; 2021-04-27)
PROC: 0BC18ZZ Extirpation of Matter from Trachea, Via Natural or Artificial Opening Endoscopic (ICD-10-PCS; 2021-04-27)
PROC: 02HV33Z Insertion of Infusion Device into Superior Vena Cava, Percutaneous Approach (ICD-10-PCS; 2021-04-27)
PROC: B548ZZA Ultrasonography of Superior Vena Cava, Guidance (ICD-10-PCS; 2021-04-27)
PROC: 03HY32Z Insertion of Monitoring Device into Upper Artery, Percutaneous Approach (ICD-10-PCS; 2021-04-27)
DX: S06.5X0A Traumatic subdural hemorrhage without loss of consciousness, initial encounter (principal); G93.41 Metabolic encephalopathy; J96.01 Acute respiratory failure with hypoxia; E87.1 Hypo-osmolality and hyponatremia; E87.2 Acidosis; I47.2 Ventricular tachycardia; R47.01 Aphasia; N17.9 Acute kidney failure, unspecified; K56.7 Ileus, unspecified; Z20.822 Contact with and (suspected) exposure to COVID-19; D72.823 Leukemoid reaction; E78.00 Pure hypercholesterolemia, unspecified; E78.5 Hyperlipidemia, unspecified; E87.6 Hypokalemia; G93.89 Other specified disorders of brain; I10 Essential (primary) hypertension; W18.39XA Other fall on same level, initial encounter; Y93.89 Activity, other specified; Y92.89 Other specified places as the place of occurrence of the external cause; Y99.8 Other external cause status; Z51.5 Encounter for palliative care; R56.9 Unspecified convulsions; K21.9 Gastro-esophageal reflux disease without esophagitis; K14.8 Other diseases of tongue
CPT/HCPCS: 36415; 36600; 74018; 74230; 96360; 99285; J7042; S0020; 31622; 31635; 70450; 70551; 71045; 80048; 80053; 81001; 82330; 82803; 82962; 83605; 83735; 84100; 84132; 84478; 84484; 85025; 85610; 85730; 87040; 87070; 87077; 87081; 87086; 87186; 87205; 87635; 92950; 93005; 93306; 94002; 94003; 95819; C1713; C1729; G0378; J0171; J0295; J0690; J0696; J1100; J1644; J1953; J2250; J2405; J2704; J2710; J3010; J3370; J3475; J3480; 92523-GN; C1781; J0330; J0360; J2060; J2270; J7030; J7040; J7050; J7120